=== PATIENT | male | born 1960 | race Caucasian/White ===

== ENCOUNTER 2018-07-24 07:58 | Emergency (ER) | payer BC, OTHER ==
[2018-07-24 08:40] VITALS: BP 140/100
--- NOTE | 2018-07-24 08:54 | UC ---
Back Pain HPI - HPI Summary HPI Summary: The patient is a 58-year-old male that sustained a lower back injury at work approximately a month ago. He does not really remember the exact date. This is his first visit here for evaluation of his back pain. He states that initially he had severe lower back pain with constant pain radiating to his left buttocks and down his left leg to his knee. He was seen approximately 2 weeks ago by his PMD. He is given a Medrol Dosepak and Flexeril. The pain is decreased and is currently at about a 5. He has intermittent left buttocks pain and left leg pain down to his left knee. His had no bowel or bladder dysfunction. He states that the initial injury occurred bending over to clean up desks. He has had no fever or chills. Currently taking 1 Flexeril at bedtime. - History of Current Complaint Chief Complaint: UCBackPain Stated Complaint: WC - LOWER BACK INJURY Time Seen by Provider: 07/24/18 08:43 Hx Obtained From: Patient Onset/Duration: Sudden Onset, Lasting Weeks Timing: Constant Severity Initially: Severe Severity Currently: Moderate Pain Intensity: 5 Pain Scale Used: 0-10 Numeric Back Pain: Is Discrete @ - band like lower back, Radiates To - left buttock and down left leg to knee (intermittent now) Character: Aching, Throbbing, Spasmodic Aggravating Factor(s): Movement, Lifting, Bending Alleviating Factor(s): Rest, Other - medrol dose pack Associated Signs And Symptoms: Positive: Negative - Allergies/Home Medications Allergies/Adverse Reactions: Allergies Allergy/AdvReac Type Severity Reaction Status Date / Time No Known Allergies Allergy Verified 07/24/18 08:29 Home Medications: Home Medications Cyclobenzaprine TAB* [Flexeril 10 MG TAB*] 10 mg PO BEDTIME PRN 07/24/18 [ History Confirmed 07/24/18] methylPREDNISolone [Medrol Dosepak 4 MG*] 0 mg PO .SEE JULIO INSTRUCTION 07/24/18 [History Confirmed 07/24/18] PMH/Surg Hx/FS Hx/Imm Hx Previously Healthy: Yes - Surgical History Surgical History: Yes Surgery Procedure, Year, and Place: NECK INJURY FROM FALLING ICE. HAS HARDWARE - Family History Known Family History: Positive: Hypertension - Social History Alcohol Use: Rare Substance Use Type: None Smoking Status (MU): Light Every Day Tobacco Smoker Type: Cigarettes Amount Used/How Often: 1/2 PPD Review of Systems Constitutional: Negative Skin: Negative Eyes: Negative ENT: Negative Respiratory: Negative Cardiovascular: Negative Gastrointestinal: Negative Genitourinary: Negative Motor: Negative Neurovascular: Negative Musculoskeletal: Arthralgia, Myalgia Neurological: Negative Psychological: Negative All Other Systems Reviewed And Are Negative: Yes Physical Exam Triage Information Reviewed: Yes Appearance: Well-Appearing, No Pain Distress, Well-Nourished Vital Signs: Initial Vital Signs Temp 98.1 F 07/24/18 08:32 Pulse 75 07/24/18 08:32 Resp 18 07/24/18 08:32 BP 140/100 07/24/18 08:32 Pulse Ox 95 07/24/18 08:32 Eyes: Positive: Conjunctiva Clear ENT: Positive: Hearing grossly normal. Negative: Nasal congestion, Nasal drainage, Trismus, Muffled voice, Dental tenderness Neck: Positive: Nontender, No Lymphadenopathy. Negative: Supple - decreased ROM Respiratory: Positive: Lungs clear, Normal breath sounds, No respiratory distress, No accessory muscle use Cardiovascular: Positive: RRR, No Murmur Abdomen Description: Positive: Nontender Musculoskeletal: Positive: ROM Intact, No Edema Neurological Exam: Normal Neurological: Positive: Alert, Other: - Seated SLR + at 45 degrees Psychological Exam: Normal Back Pain Course/Dx - Differential Dx/Diagnosis Provider Diagnoses: lumbar myofascial strain/spasm. left sciatica Discharge - Sign-Out/Discharge Documenting (check all that apply): Patient Departure All imaging exams completed and their final reports reviewed: No Studies - Discharge Plan Condition: Stable Disposition: HOME Patient Education Materials: Sciatica (ED) Referrals: Phil García MD [Medical Doctor] - As Soon As Possible Additional Instructions: PT consult you may take aleve (OTC) 2 twice daily with food your BP was a little high here (probably due to pain....see your MD for recheck in 4-8 weeks) See Dr. García in follow up for your back. - Billing Disposition and Condition Condition: STABLE Disposition: Home Images Front/Back of Body, Lg (Bent): 1 - tender 2 - radiation of pain
== END 2018-07-24 09:13 | disposition home or self-care (01) ==
LOC: UCCORT 07:58
DX: S39.012A Strain of muscle, fascia and tendon of lower back, initial encounter (principal); S33.5XXA Sprain of ligaments of lumbar spine, initial encounter; Y92.9 Unspecified place or not applicable; M62.830 Muscle spasm of back; M54.32 Sciatica, left side; F17.210 Nicotine dependence, cigarettes, uncomplicated
CPT/HCPCS: 99211; G0463

== ENCOUNTER 2018-08-11 09:12 | Emergency (ER) | payer BC, OTHER ==
[2018-08-11 09:59] VITALS: BP 156/105
--- NOTE | 2018-08-11 10:16 | UC ---
Throat Pain/Nasal Fred HPI - HPI Summary HPI Summary: 58 yo male presents with sinus pain/pressure/congestion for the last week. He has been taking taking johnathon-seltzer OTC with no relief. He denies fever, chills , sore throat, cough, SOB, chest pain. - History of Current Complaint Chief Complaint: UCRespiratory Stated Complaint: COLD SYMP. Time Seen by Provider: 08/11/18 10:16 Hx Obtained From: Patient Onset/Duration: Gradual Onset Pain Intensity: 0 - Allergies/Home Medications Allergies/Adverse Reactions: Allergies Allergy/AdvReac Type Severity Reaction Status Date / Time No Known Allergies Allergy Verified 08/11/18 10:00 Home Medications: Home Medications Doxylamine/Phenylep/Dm/Aspirin [Johnathon-Moran Day-Night Tab Eff] 2 each PO Q4H PRN 08/11/18 [History Confirmed 08/11/18] PMH/Surg Hx/FS Hx/Imm Hx Cardiovascular History: Hypertension - Surgical History Surgical History: Yes Surgery Procedure, Year, and Place: NECK INJURY FROM FALLING ICE. HAS HARDWARE - Family History Known Family History: Positive: Hypertension - Social History Occupation: Employed Full-time Lives: With Family Alcohol Use: Rare Substance Use Type: None Smoking Status (MU): Light Every Day Tobacco Smoker Type: Cigarettes Amount Used/How Often: 1/2 PPD Review of Systems Constitutional: Negative Skin: Negative Eyes: Negative ENT: Nasal Discharge, Sinus Congestion, Sinus Pain/Tenderness Respiratory: Negative Cardiovascular: Negative Gastrointestinal: Negative Neurovascular: Negative Neurological: Negative Psychological: Negative All Other Systems Reviewed And Are Negative: Yes Physical Exam - Summary Physical Exam Summary: GENERAL: NAD. WDWN. No pain distress. SKIN: No rashes, sores, lesions, or open wounds. HEENT: Head: AT/NC Eyes: EOM intact. Conjunctiva clear without inflammation or discharge. Ears: Hearing grossly normal. TMs intact, no bulging, erythema, or edema. Nose: Nasal mucosa mildly swollen and erythematous with yellow/ clear discharge. TTP maxillary and frontal sinus. Positive post nasal drip Throat: Posterior oropharynx without exudates, erythema, or tonsillar enlargement. Uvula midline. NECK: Supple. Nontender. No lymphadenopathy. CHEST: CTAB. No r/r/w. No accessory muscle use. Breathing comfortably and in no distress. CV: RRR. Without m/r/g. Pulses intact. NEURO: Alert. PSYCH: Age appropriate behavior. Triage Information Reviewed: Yes Vital Signs: Initial Vital Signs Temp 98.3 F 08/11/18 09:51 Pulse 67 08/11/18 09:51 Resp 20 08/11/18 09:51 BP 156/105 08/11/18 09:51 Pulse Ox 95 08/11/18 09:51 Vital Signs Reviewed: Yes Throat Pain/Nasal Course/Dx - Course Course Of Treatment: Sinusitis - Differential Dx/Diagnosis Provider Diagnoses: Sinusitis Discharge - Sign-Out/Discharge Documenting (check all that apply): Patient Departure All imaging exams completed and their final reports reviewed: No Studies - Discharge Plan Condition: Stable Disposition: HOME Prescriptions: Amoxicillin PO (*) [Amoxicillin 500 MG CAP*] 500 mg PO Q12H #14 cap Patient Education Materials: Sinusitis (ED) Referrals: No Primary Care Phys,NOPCP [Primary Care Provider] - Additional Instructions: If you develop a fever, shortness of breath, chest pain, new or worsening symptoms - please call your PCP or go to the ED. Your blood pressure was high at todays visit. Please see your primary provider within 4 weeks for recheck and re-evaluation. - Billing Disposition and Condition Condition: STABLE Disposition: Home
== END 2018-08-11 10:25 | disposition home or self-care (01) ==
LOC: UCCORT 09:12
DX: J32.9 Chronic sinusitis, unspecified (principal); F17.210 Nicotine dependence, cigarettes, uncomplicated
CPT/HCPCS: 99212; G0463

== ENCOUNTER 2019-05-29 12:50 | Emergency (ER) | payer OTHER ==
[2019-05-29 13:12] VITALS: BP 103/57
--- NOTE | 2019-05-29 13:22 | UC ---
Skin Complaint HPI - HPI Summary HPI Summary: 59 year old male with bee stings. pt states that at approx 1115 today, he was stung by several bees on his L hand while at work. He states he was raking/ picking up a pile of leaves when he got stung. He states approx 3 stings. Slight swelling noted to the dorsal aspect of L hand. Denies any respiratory s/ s or swelling of mouth/airway. Patient has not taken medication prior to arrival. He didn't drive here. He will try to return to work today he states. He is requesting a steroid Medrol Dosepak because he has had this in the past and it did help him and help his symptoms improved dramatically. He is having no shortness of breath or chest pressure. I besides having significant itching in the hand. He is requesting Medrol Dosepak. He does not want any other treatment at this time. Nothing has improved his symptoms. Nothing has worsened his symptoms. - History of Current Complaint Chief Complaint: UCSkin Time Seen by Provider: 05/29/19 13:15 Stated Complaint: WC-BEE STINGS Hx Obtained From: Patient Onset/Duration: Sudden Onset Pain Intensity: 0 - Allergy/Home Medications Allergies/Adverse Reactions: Allergies Allergy/AdvReac Type Severity Reaction Status Date / Time No Known Allergies Allergy Verified 05/29/19 13:12 Home Medications: Home Medications Blood Pressure Med 1 tab PO DAILY 05/29/19 [History Confirmed 05/29/19] PMH/Surg Hx/FS Hx/Imm Hx Previously Healthy: Yes - Surgical History Surgical History: Yes Surgery Procedure, Year, and Place: NECK INJURY FROM FALLING ICE. HAS HARDWARE - Family History Known Family History: Positive: Hypertension - Social History Occupation: Employed Full-time Alcohol Use: Rare Substance Use Type: None Smoking Status (MU): Heavy Every Day Tobacco Smoker Type: Cigarettes, Cigars Amount Used/How Often: 1/2 PPD Review of Systems All Other Systems Reviewed And Are Negative: Yes Skin: Positive: Other - Insect sting on hand Is Patient Immunocompromised?: No Physical Exam Triage Information Reviewed: Yes Appearance: Well-Appearing, No Pain Distress, Well-Nourished Vital Signs: Initial Vital Signs Temp 98.2 F 05/29/19 13:05 Pulse 72 05/29/19 13:05 Resp 16 05/29/19 13:05 BP 103/57 05/29/19 13:05 Pulse Ox 96 05/29/19 13:05 Vital Signs Reviewed: Yes Eye Exam: Normal ENT Exam: Normal Neck exam: Normal Neck: Positive: 1 Respiratory Exam: Normal Cardiovascular Exam: Normal Musculoskeletal Exam: Normal Neurological Exam: Normal Psychological Exam: Normal Skin Exam: Normal Images Hands: 1 - Mild redness and swelling/ insect sting 2 - Mild redness and swelling/ insect sting 3 - Mild redness and swelling/ insect sting Course/Dx - Course Course Of Treatment: Bee sting to left hand. Discussed Benadryl and steroids. Patient declined medication in this facility. No shortness of breath or difficulty breathing. Patient is requesting the Medrol Dosepak. He states this helps his symptoms dramatically. Given prescription. He is aware of side effects of medication. If symptoms develop of any infection or any other concern he is aware to seek medical attention. - Diagnoses Provider Diagnosis: Bee sting Discharge - Sign-Out/Discharge Documenting (check all that apply): Patient Departure All imaging exams completed and their final reports reviewed: No Studies - Discharge Plan Condition: Good Disposition: HOME Prescriptions: methylPREDNISolone [Medrol Dosepak 4 MG*] 0 mg PO .SEE JULIO INSTRUCTION #1 tab Patient Education Materials: Insect Bite or Sting (ED) Referrals: No Primary Care Phys,NOPCP [Primary Care Provider] - - Billing Disposition and Condition Condition: GOOD Disposition: Home
== END 2019-05-29 13:27 | disposition home or self-care (01) ==
LOC: UCCORT 12:50
DX: T63.441A Toxic effect of venom of bees, accidental (unintentional), initial encounter (principal); M79.89 Other specified soft tissue disorders; Y92.89 Other specified places as the place of occurrence of the external cause; F17.210 Nicotine dependence, cigarettes, uncomplicated; F17.290 Nicotine dependence, other tobacco product, uncomplicated
CPT/HCPCS: 99212; G0463